=== PATIENT | male | born 1950 | race Caucasian/White ===

== ENCOUNTER 2024-01-17 11:00 | Day surgery (SDC) | payer MEDICARE, MEDICAID ==
[2024-01-04 14:27] LABS: BILIRUBIN,URINE SMALL (Neg); CLARITY,URINE CLOUDY (Clear); COLOR,URINE YELLOW (Yellow); GLUCOSE, URINE NEGATIVE (Neg); KETONES,URINE 15 mg/dl (Neg); LEUKOCYTE ESTERASE ,URINE TRACE (Neg); NITRITES, URINE NEGATIVE (Neg); OCCULT BLOOD,URINE NEGATIVE (Neg); PROTEIN,URINE TRACE mg/dl (Neg)
[2024-01-04 14:28] LABS: UA COLLECTION TYPE CLN CATCH MIDSTREAM
[2024-01-04 14:29] LABS: BASOPHILS # (AUTO) 0.1 X10'3 (0-0.2); BASOPHILS % (AUTO) 0.7 % (0-1); EOSINOPHILS # (AUTO) 0.1 X10'3 (0-0.9); EOSINOPHILS % (AUTO) 0.7 % (0-6); LYMPHOCYTES # (AUTO) 1.7 X10'3 (1.1-4.8); LYMPHOCYTES % (AUTO) 20.1 % (21-51); MEAN CORPUSCULAR HEMOGLOBIN 32.7 PG (27.0-31.0); MEAN CORPUSCULAR HGB CONC 33.8 g/dL (33.0-36.5); MEAN CORPUSCULAR VOLUME 96.6 FL (78-98); MEAN PLATELET VOLUME 7.8 FL (7.4-10.4); MONOCYTES # (AUTO) 0.6 X10'3 (0-0.9); MONOCYTES % (AUTO) 6.8 % (2-12); NEUTROPHILS # (AUTO) 6.1 X10'3 (1.8-7.7); NEUTROPHILS % (AUTO) 71.7 % (42-75); PRE OP HEMATOCRIT 47.7 % (42.0-52.0); PRE OP HEMOGLOBIN 16.1 g/dL (14.0-17.9); PRE OP PLATELET COUNT 285 X10'3 (140-440); PRE OP WHITE BLOOD COUNT 8.5 10'3 (4.8-10.8); RED BLOOD COUNT 4.93 X10'6 (4.70-6.10); RED CELL DISTRIBUTION WIDTH 13.4 % (11.5-14.5)
[2024-01-04 14:35] LABS: BACTERIA,URINE FEW /HPF (Neg); RBC,URINE NONE SEEN /HPF (0-2); SQUAMOUS EPITHELIAL CELL,UR NONE SEEN /LPF (FEW); WBC,URINE 0-4 /HPF (0-4)
[2024-01-04 14:36] LABS: AMORPHOUS PHOSPHATES 4+
[2024-01-04 14:36] LABS: PRE OP PROTIME 10.4 SECONDS (9.0-12.0)
[2024-01-04 14:39] LABS: ALBUMIN 3.7 G/DL (3.4-5.0); ALKALINE PHOSPHATASE 51 IU/L (46-116); BLOOD UREA NITROGEN 16 MG/DL (7-18); BUN/CREATININE RATIO 13.9 (10.0-20.0); CALCIUM 9.7 MG/DL (8.5-10.1); CHLORIDE 101 MMOL/L (99-107); CREATININE 1.15 MG/DL (0.60-1.10); PRE OP ALT 33 U/L (30-65); PRE OP ANION GAP 6 (8-16); PRE OP AST 29 U/L (10-37); PRE OP BILIRUB, TOTAL 1.3 MG/DL (0.0-1.0); PRE OP GLUCOSE 142 MG/DL (70-104); PRE OP POTASSIUM 3.8 MMOL/L (3.4-5.1); PRE OP SODIUM 138 MMOL/L (135-145); TOTAL CARBON DIOXIDE 30.8 MMOL/L (24-32); TOTAL PROTEIN 7.5 G/DL (6.4-8.2); eGFR 63 ML/MIN
[~2024-01-17] VITALS: Ht 182.9 cm; Wt 91.3 kg
[2024-01-17] VITALS (24 sets, daily range): BP systolic 86–134; BP diastolic 52–84; PULSE 54–87; RESP 10–20; TEMP 94.5–98.2; O2SAT 94–98
[2024-01-17] MEDS: tranexamic acid inj. 1,000 MG in normal saline IV soln 100ML IV ONE (05:30)
[2024-01-17] MEDS: cefazolin 2gm/D5W 100mL 100 ML IV ONE (05:30)
[2024-01-17] MEDS: vancomycin 1,000mg inj ONE (10:33)
[~2024-01-17 11:00] MED LIST: NO HOME MEDS
[2024-01-17] MEDS: ringers solution, lacted 1,000 ML IV SCH ×2 (11:48→16:11)
[2024-01-17] MEDS: famotidine 20mg tablet PO ONE (11:49)
[2024-01-17] MEDS: famotidine 20mg tablet ONE (12:02)
[2024-01-17] MEDS ORDERED: ondansetron/PF 4mg/2ml inj IV PRN ×2 (12:10→13:00)
[2024-01-17] MEDS ORDERED: proCHLORperazine 10 MG/2 ml inj IV PRN (12:10)
[2024-01-17] MEDS ORDERED: meperidine/PF 25mg/ml syringe IV PRN ×2 (12:10)
[2024-01-17] MEDS ORDERED: morphine 2 MG/ML inj. syringe IV PRN (12:10)
[2024-01-17] MEDS ORDERED: morphine 4 MG/ML inj SYRINge IV PRN (12:10)
[2024-01-17] MEDS: methylene blue (5mg/ml) 50mg/10ml ampul IV ONE (12:29)
[2024-01-17] MEDS: gelatin sponge, absorbable (Gelfoam 100) sponge TP ONE (12:29)
[2024-01-17] MEDS: Thrombin (Bovine) 5,000 unit vial TP ONE (12:29)
[2024-01-17] MEDS ORDERED: acetaminophen 325mg tablet PO PRN (13:00)
[2024-01-17] MEDS ORDERED: bisacodyl 10mg suppository rectal RC PRN (13:00)
[2024-01-17] MEDS ORDERED: naloxone 0.4 mg/ml inj IV PRN (13:00)
[2024-01-17] MEDS ORDERED: diphenhydrAMINE 25mg capsule PO PRN (13:00)
[2024-01-17] MEDS ORDERED: HYDROcodone/acetaminophen 5mg/325mg tablet PO PRN (13:00)
[2024-01-17] MEDS ORDERED: magnesium hydroxide 30ml (MOM) UD suspension PO PRN (13:00)
[2024-01-17] MEDS ORDERED: sevoflurane 250ml liquid IH ONE (13:08)
[2024-01-17] MEDS ORDERED: fentaNYL/PF 50MCG/1 ML 2ML syringe ONE (13:19)
[2024-01-17] MEDS ORDERED: midazolam 1 mg/ML 2ml injection ONE (13:19)
[2024-01-17] MEDS ORDERED: propofol inj 20 ML IV ONE (13:22)
[2024-01-17] MEDS ORDERED: ROPIVAcaine 0.5% (5mg/ml) 30ml vial ONE (13:27)
[2024-01-17] MEDS ORDERED: dexamethasone sod phosphate 4mg/ml inj. ONE (15:22)
[2024-01-17] MEDS ORDERED: ondansetron/PF 4mg/2ml inj ONE (15:22)
[2024-01-17] MEDS: meperidine/PF 25mg/ml syringe IV PRN (16:14)
[2024-01-17] MEDS: acetaminophen 1,000mg/100ml IV 100 ML IV ONE (17:16)
[2024-01-17] MEDS: potassium cl 20mEq in 1/2 NS 1,000 ML IV SCH (19:40)
[2024-01-17] MEDS: cefazolin 2gm/D5W 100mL 100 ML IV SCH (20:37)
[2024-01-17] MEDS: HYDROcodone/acetaminophen 5mg/325mg tablet PO PRN (21:43)
[2024-01-18 00:05] VITALS: BP 94/52; PULSE 72; O2SAT 95
[2024-01-18 05:04] VITALS: BP 104/61; PULSE 69; TEMP 97.6; O2SAT 94
[2024-01-18 06:00] VITALS: BP 94/61; PULSE 61; RESP 17; TEMP 97.4; O2SAT 96
[2024-01-18 06:21] LABS: BASOPHILS # (AUTO) 0.1 X10'3 (0-0.2); BASOPHILS % (AUTO) 0.5 % (0-1); MEAN CORPUSCULAR HGB CONC 33.3 g/dL (33.0-36.5); MEAN PLATELET VOLUME 8.9 FL (7.4-10.4); RED BLOOD COUNT 4.24 X10'6 (4.70-6.10)
[2024-01-18 06:23] LABS: EOSINOPHILS % (AUTO) 0.1 % (0-6); HEMATOCRIT 41.2 % (42.0-52.0); HEMOGLOBIN 13.7 g/dl (14.0-17.9); LYMPHOCYTES # (AUTO) 1.3 X10'3 (1.1-4.8); LYMPHOCYTES % (AUTO) 10.8 % (21-51); MEAN CORPUSCULAR HEMOGLOBIN 32.4 PG (27.0-31.0); MEAN CORPUSCULAR VOLUME 97.2 FL (78-98); MONOCYTES % (AUTO) 8.2 % (2-12); NEUTROPHILS # (AUTO) 9.6 X10'3 (1.8-7.7); NEUTROPHILS % (AUTO) 80.4 % (42-75); PLATELET COUNT 226 X10'3 (140-440); RED CELL DISTRIBUTION WIDTH 13.4 % (11.5-14.5); WHITE BLOOD COUNT 11.9 X10'3 (4.5-11.0)
[2024-01-18 06:56] LABS: ALANINE AMINOTRANSFERASE 25 U/L (12-78); ALBUMIN/GLOBULIN RATIO 0.9 (1.1-1.5); ALKALINE PHOSPHATASE 40 IU/L (46-116); ANION GAP 8 (8-16); ASPARTATE AMINO TRANSFERASE 25 U/L (10-37); BILIRUBIN,TOTAL 0.8 MG/DL (0.1-1.0); BLOOD UREA NITROGEN 17 MG/DL (7-18); BUN/CREATININE RATIO 20.5 (10.0-20.0); CALCIUM 9.1 MG/DL (8.5-10.1); CHLORIDE 100 MMOL/L (99-107); CREATININE 0.83 MG/DL (0.60-1.10); GLUCOSE 105 MG/DL (70-104); POTASSIUM 4.7 MMOL/L (3.5-5.1); SODIUM 132 MMOL/L (135-145); TOTAL CARBON DIOXIDE 23.9 MMOL/L (24-32); TOTAL PROTEIN 6.3 G/DL (6.4-8.2); eCRCL 88 ML/MIN; eGFR > 90 ML/MIN
[2024-01-18 10:00] VITALS: BP 111/66; PULSE 80; RESP 16; TEMP 96.7; O2SAT 99
[2024-01-18 13:59] VITALS: RESP 16
== END 2024-01-18 15:28 | disposition home or self-care (01) ==
LOC: ORTHO 4S 11:00 → SSTAY O 11:00 → UNDOADMIN 11:00 → PAS IN 11:00 → ORTHO 4S 17:51 → PAS IN 17:51 → ORTHO 4S 18:49 → SSTAY O 01-18 15:28
PROVIDERS: ATTEND Specialist
DX: M19.011 Primary osteoarthritis, right shoulder (principal); G89.18 Other acute postprocedural pain; E66.9 Obesity, unspecified; I25.2 Old myocardial infarction; M19.90 Unspecified osteoarthritis, unspecified site; Z98.890 Other specified postprocedural states; Z68.27 Body mass index [BMI] 27.0-27.9, adult
CPT/HCPCS: 23430; 23472; 36415; 64415; 71046; 73030; 80053; 81001; 82948; 85025; 85610; 85730; 86885; 86900; 86901; 87081; 97110; 97161; 97530; A4565; A4618; A6402; A6455; A7000; C1776; J0131; J0690; J0735; J1100; J2175; J2250; J2405; J2704; J2795; J3010; J3370; J3480; J3490; J7030; J7120; Q9968; Z7506; Z7508; Z7512; Z7610; 76000; A6449; G0378